=== PATIENT | female | born 1990 | race Caucasian/White ===

== ENCOUNTER → 2016-08-27 | Outpatient (CLI) | payer OTHER | LOC: CDED 14:12 | PROVIDERS: ATTEND Obstetrics & Gynecology | DX: O24.419 Gestational diabetes mellitus in pregnancy, unspecified control (principal) | CPT/HCPCS: 97802 ==

== ENCOUNTER 2016-09-22 05:04 | Inpatient (IN) | payer OTHER ==
[2016-09-22] VITALS (131 sets, daily range): BP systolic 100–140; BP diastolic 38–88; PULSE 63–186; RESP 17–19; TEMP 97.7–99.4; O2SAT 99–100
[~2016-09-22] VITALS: Ht 160 cm; Wt 84.4 kg
[2016-09-22 05:56] LABS: BASOPHIL % 0.2 % (0.0-2.0); EOSINOPHIL # 0.1 TH/MM3 (0-0.4); EOSINOPHIL % 0.6 % (0.0-4.0); HEMATOCRIT 31.8 % (35.0-46.0); HEMO FLAGS DIFF FINAL; LYMPH % 18.5 % (9.0-44.0); LYMPHOCYTE # 1.8 TH/MM3 (1.0-4.8); MEAN CELL VOLUME 74.4 FL (80.0-100.0); MEAN CORPUSCULAR HEMOGLOBIN 23.9 PG (27.0-34.0); MEAN CORPUSCULAR HGB CONC 32.1 % (32.0-36.0); MONO % 7.7 % (0.0-8.0); PLATELET COUNT 237 TH/MM3 (150-450); RED BLOOD COUNT 4.28 MIL/MM3 (4.00-5.30); RED CELL DISTRIBUTION WIDTH 18.6 % (11.6-17.2); WHITE BLOOD COUNT 9.6 TH/MM3 (4.0-11.0)
[2016-09-22] MEDS ORDERED: PREN29TA PO (06:00)
[2016-09-22 06:02] LABS: BACTERIA, URINE OCC /hpf; BLOOD, URINE NEG (NEG); GLUCOSE,URINE NEG (NEG); HYALINE CAST, URINE 2 /lpf (RARE); KETONE, URINE NEG (NEG); MUCUS URINE FEW /lpf (OCC); NITRITE,URINE NEG (NEG); SQUAMOUS EPITHELIAL CELL URINE 3 /hpf (0-5); URINE COLOR YELLOW (YELLW/STRAW)
[2016-09-22 06:03] LABS: COMMENT (UR) CULT NOT INDICATED; CULTURE IF INDICATED CULT NOT INDICATED
[2016-09-22] MEDS ORDERED: OXYTOCIN 30 UNITS-500ML PREMIX 500 ML ONE (06:06)
[2016-09-22] MEDS ORDERED: CITRIC ACID-SODIUM CITRATE LIQ 30 ML UDC PO SCH (06:15)
[2016-09-22] MEDS ORDERED: MINERAL OIL 10 ML VIAL TOPICAL PRN (06:15)
[2016-09-22] MEDS ORDERED: NS 500 ML BOLUS IV PRN (06:15)
[2016-09-22] MEDS ORDERED: LIDOCAINE HCL 1% 50 ML VIAL I-DERMAL PRN (06:15)
[2016-09-22] MEDS ORDERED: OXYTOCIN 30 UNITS/NS 500ML PREMIX IV SCH ×2 (06:15→09:00)
[2016-09-22] MEDS ORDERED: LIDOCAINE HCL 1% 50 ML VIAL INFIL PRN (06:15)
[2016-09-22] MEDS ORDERED: LACTATED RINGER'S 1000 ML BOLUS IV PRN (06:15)
[2016-09-22] MEDS ORDERED: ONDANSETRON HCL 4 MG/2 ML VIAL IV PRN (06:15)
[2016-09-22] MEDS ORDERED: OXYTOCIN 30 UNITS 500ML PREMIX IV ONE (06:15)
[2016-09-22] MEDS ORDERED: NS 1000 ML IV PRN (06:15)
[2016-09-22] MEDS: LACTATED RINGER'S 1000 ML IV SCH ×3 (06:32→22:15)
[2016-09-22] MEDS ORDERED: fentaNYL 2MCG-BUPIV 0.125% INJ 100 ML ONE (14:33)
[2016-09-22] MEDS ORDERED: fentaNYL 2MCG-BUPIV 0.125% 100 ML EPIDURAL SCH (17:30)
[2016-09-22] MEDS ORDERED: ePHEDrine/NS 25 MG/5 ML SYR IV PRN (17:30)
[2016-09-22] MEDS ORDERED: NO SYSTEM NARCOTICS PRN (17:30)
[2016-09-22] MEDS ORDERED: DO NOT ADMINISTER ANTICOAGULANTS PRN (17:30)
[2016-09-22] MEDS ORDERED: BUPIVACAINE HCL PF 0.25% 10 ML VIAL ONE ×2 (19:39→22:36)
[2016-09-23] VITALS (11 sets, daily range): BP systolic 103–126; BP diastolic 55–73; PULSE 16–126; RESP 16–18; TEMP 98.1–98.5; O2SAT 98–100
[2016-09-23] MEDS ORDERED: ACETAMINOPHEN 1000 MG/100 ML VIAL IV ONE (00:02)
[2016-09-23] MEDS ORDERED: OXYTOCIN 10 UNIT/ML AMP ONE (00:02)
[2016-09-23] MEDS ORDERED: LACTATED RINGER'S 1000 ML IV ONE (00:15)
[2016-09-23] MEDS ORDERED: ceFAZolin 2 GM PREMIX 50 ML IV SCH (00:15)
[2016-09-23] MEDS ORDERED: CITRIC ACID-SODIUM CITRATE LIQ 30 ML UDC PO SCH (00:15)
[2016-09-23] MEDS ORDERED: LACTATED RINGER'S 1000 ML IV SCH (00:15)
[2016-09-23] MEDS ORDERED: OXYTOCIN 30 UNITS-500ML PREMIX 500 ML IV ONE (01:00)
[2016-09-23] MEDS ORDERED: KETOROLAC TROMETHAMINE 60 MG/2 ML (IM) VIAL IM PRN ×2 (01:00)
[2016-09-23] MEDS ORDERED: ONDANSETRON HCL 4 MG/2 ML VIAL IV PUSH PRN (01:00)
[2016-09-23] MEDS ORDERED: oxyCODONE/ACETAMINOPHEN 5 MG/325 MG TAB PO PRN (01:00)
[2016-09-23] MEDS ORDERED: SODIUM CHLORIDE 0.9% FLUSH 10 ML FLUSH IV FLUSH PRN (01:00)
--- NOTE | 2016-09-23 01:00 | PD.OB.DELI ---
Procedure Note Section Procedure Pre Op Diagnosis arrest active phase of labor Post Op Diagnosis: Post Op Diagnosis same Performed by Deborah Mckeon Procedure: Primary Low Transverse Sec Indication for delivery: Other Informed consent obtained: For anesthesia, For procedure Confirmed correct: Patient, Procedure, Site, Time-out taken Anesthesia: Epidural Medication prior to procedure: As documented in eMAR Urinary catheter: Inserted using sterile technique Sterile preparation: Duraprep Position: Supine with wedge to left side Operative Features Skin Incision: Pfannenstiel Uterine Incision: Low transverse w/knife / blunt ext Membranes Ruptured: Previously Presentation: Occiput anterior Delivery of infant: Uneventful : Male One Minute : 9 Five Minute : 9 Weight: 7-4 Status of : Viable, Umbilical cord, Nursery present Placenta delivered: Intact Medications: Antibiotics, Oxytocin Estimated blood loss: 800 cc Procedure tolerated: Well Maternal Condition: Stable Condition: Stable Deborah Mckeon MD Sep 23, 2016 01:00
[2016-09-23] MEDS ORDERED: MORPHINE SULFATE PF 10 MG/10 ML VIAL ONE (01:07)
[2016-09-23] MEDS ORDERED: KETOROLAC TROMETHAMINE 60 MG/2 ML (IM) VIAL IM ONE (01:42)
[2016-09-23] MEDS ORDERED: LACTATED RINGER'S 1000 ML INJ 1,000 ML IV SCH (05:53)
--- NOTE | 2016-09-23 09:34 | MP ---
cc: SUMEET RATLIFF M.D. DATE OF SURGERY: 09/23/2016 PREOPERATIVE DIAGNOSIS Intrauterine at 40+ weeks gestation with arrest of active phase of labor at 6 cm. POSTOPERATIVE DIAGNOSIS Intrauterine at 40+ weeks gestation with arrest of active phase of labor at 6 cm. PROCEDURE PERFORMED Primary low transverse section. OPERATING SURGEON Dr. Sumeet Ratliff. ANESTHESIA Epidural. FINDINGS IN SURGERY Included a viable male weighing 7 pounds 4 ounces with Apgars 9 and 9. Normal-appearing tubes and ovaries bilaterally and a very prominent sacrum noted on exam. BLOOD LOSS 800 ccs. COMPLICATIONS None. PROCEDURE IN DETAIL After proper consents were obtained, blood had been typed and screened, the patient was taken to the operating room where an adequate level of epidural anesthesia was achieved. She had already had a Bagley catheter placed. She was sterilely prepped and draped at this time using a sharp knife. A Pfannenstiel skin incision was performed. This was carried down to the fascia using Bovie cautery. Fascia was nicked in the midline and extended superior laterally. There was blunt dissection of the fascia off of the muscles. The peritoneum was identified and grasped with two hemostats and entered sharply using the Metzenbaum scissors. This incision was extended superiorly inferiorly paying close attention to the bladder. Bladder blade was applied, bladder flap was developed, bladder blade was replaced. Transverse incision was made in the lower uterine segment. Finger fracture technique was used to extend it. We then had a controlled delivery of the vertex, bulb suction to the oropharynx and nares, controlled delivery of the body followed. We had delayed cord clamping to 45 seconds, then we clamped the cord, cut in between and was handed to team in attendance, a viable male 7 pounds 4 ounces, Apgars 9 and 9. At this time cord blood sample was obtained. Placenta was removed. The uterus was exteriorized, wiped clean of clots and debris. The uterine incision was closed with a #1 Chromic suture starting at each apex and meeting in the midline in a running interlocking fashion. Excellent hemostasis was noted. Irrigation was performed of the abdominal pelvic cavity. We placed the uterus back into the cavity. We reapproximated the muscles using a #1 Chromic suture x1. We then closed the fascia using a 0 Vicryl starting at each apex and meeting in midline in a running fashion. Irrigation was performed of the subcu. Hemostasis was achieved with the Bovie cautery and the skin was closed with jessica. All sponge, lap, needle count were correct x3 and the patient was stable to the recovery room. MD CHRIS Vences/TLL /8:58 AM /9:16 AM
[2016-09-23] MEDS ORDERED: OXYTOCIN 30 UNITS-500ML PREMIX 500 ML IV PRN (11:00)
[2016-09-23] MEDS: oxyCODONE/ACETAMINOPHEN 5 MG/325 MG TAB PO PRN ×3 (12:53→22:11)
--- NOTE | 2016-09-23 12:54 | HHI.OB ---
Subjective Post Operative Day: 1 Remarks Pt doing well, good pain control, tolerating po Objective Vitals/I&O Vital Signs Date Time Temp Pulse Resp B/P Pulse Ox O2 Delivery O2 Flow Rate FiO2 09/23/16 08:25 98.1 92 16 103/62 09/23/16 04:24 80 16 108/58 09/23/16 04:24 98.5 09/23/16 02:15 108/55 09/23/16 02:15 82 18 99 09/23/16 02:00 90 18 105/59 98 09/23/16 01:45 112/66 09/23/16 01:45 109 18 99 09/23/16 01:30 114 108/55 99 09/23/16 01:30 18 09/23/16 01:15 126 18 126/64 99 09/23/16 01:00 98.4 108 18 120/58 09/23/16 01:00 100 09/22/16 23:35 84 09/22/16 23:31 72 105/52 09/22/16 23:30 71 09/22/16 23:30 18 09/22/16 23:25 84 09/22/16 23:20 83 09/22/16 23:20 85 114/56 09/22/16 23:15 86 09/22/16 23:14 99.4 18 09/22/16 23:12 78 108/56 09/22/16 23:10 74 09/22/16 23:05 90 09/22/16 23:00 76 124/59 09/22/16 23:00 71 09/22/16 22:59 18 09/22/16 22:42 86 131/64 09/22/16 22:41 18 09/22/16 22:40 131 09/22/16 22:30 109 128/74 09/22/16 22:15 18 09/22/16 22:10 98 09/22/16 22:05 93 09/22/16 22:00 94 110/78 09/22/16 22:00 82 09/22/16 21:33 18 09/22/16 21:31 75 18 104/57 09/22/16 21:30 89 09/22/16 21:01 18 09/22/16 21:01 98.6 75 105/43 8/2/17 21:00 87 8/2/17 20:40 18 8/2/17 20:40 68 82/17 20:35 98 82/17 20:31 84 110/74 82/17 20:30 90 82/17 20:10 74 82/17 20:05 79 8217 20:00 73 100/57 82/17 20:00 75 82/17 19:54 18 82/17 19:50 70 82/17 19:48 71 120/64 82/17 19:46 75 118/67 82/17 19:45 78 18 2/17 19:42 71 114/50 82/17 19:40 85 217 19:35 90 217 19:30 83 105/63 82/17 19:30 68 17 19:10 98 217 19:10 98.1 09/22/16 19:10 18 17 19:05 90 17 19:01 77 114/38 82/17 19:00 77 17 18:55 95 09/22/17 18:50 84 2/17 18:45 80 09/22/17 18:40 107 09/22/17 18:35 92 2/17 18:30 92 2/17 18:30 74 136/88 82/17 18:25 79 09/22/17 18:20 72 09/22/17 18:15 18 2/17 18:15 98.2 2/17 18:15 78 82/17 18:10 86 2/17 18:05 88 2/17 18:00 70 82/17 18:00 75 131/79 82/17 17:55 85 2/17 17:50 90 2/17 17:46 69 117/53 82/17 17:45 81 82/17 17:40 66 82/17 17:35 82 82/17 17:30 65 82/17 17:30 78 111/68 82/17 17:25 70 82/17 17:20 82 8/2/17 17:16 67 110/44 82/17 17:15 18 82/17 17:15 81 817 17:10 76 817 17:05 76 817 17:00 68 82/17 17:00 77 121/59 82/17 16:56 72 114/61 82/17 16:45 67 82/17 16:41 72 126/47 82/17 16:40 100 82/17 16:35 70 82/17 16:30 19 82/17 16:30 89 82/17 16:25 68 817 16:20 81 817 16:20 86 127/65 817 16:15 98.2 17 16:15 76 17 16:05 71 17 16:01 76 113/63 17 16:00 96 17 15:55 89 17 15:50 85 2/17 15:45 70 2/17 15:41 75 102/85 82/17 15:40 75 2/17 15:35 71 17 15:30 72 17 15:30 18 17 15:25 93 2/17 15:25 100 2/17 15:20 88 119/80 82/17 15:20 100 2/17 15:20 186 17 15:15 75 100 2/17 15:10 93 100 2/17 15:05 81 100 82/17 15:01 72 111/63 82/17 15:00 77 100 82/17 14:57 84 126/83 82/17 14:56 95 133/76 82/17 14:55 100 100 82/17 14:50 86 99 82/17 14:45 98 100 82/17 14:41 71 108/58 82/17 14:21 76 127/52 82/17 14:00 63 118/75 82/17 13:40 73 114/87 82/17 13:30 98.6 09/22/16 13:21 70 111/65 09/22/16 13:00 87 116/61 09/22/16 12:55 18 Result Diagram: 09/22/16 0539 Objective Remarks GENERAL: Well-nourished, well-developed patient. CARDIOVASCULAR: Regular rate and rhythm without murmurs, gallops, or rubs. RESPIRATORY: Breath sounds equal bilaterally. No accessory muscle use. ABDOMEN/GI: Abdomen soft, non-tender, bowel sounds present. Incision: Clean, dry and intact. Fundus: Firm, non-tender at umbilicus. GENITOURINARY: Light to moderate bleeding. EXTREMITIES: No cyanosis or edema, non-tender, without signs of DVT. Medications and IVs Current Medications Medications (Trade) Dose Ordered Sig/Demetrio Route Start Time Stop Time Status Last Admin Lactated Ringer's 1,000 ml @ 125 mls/hr Q8H IV 09/22/16 06:15 09/22/16 22:15 Lactated Ringer's 1,000 ml @ 3,000 mls/hr BOLUS PRN IV 09/22/16 06:15 09/22/16 11:55 Sodium Chloride 500 ml @ 1,000 mls/hr BOLUS PRN IV 09/22/16 06:15 (NS 1000 ml Inj) 1,000 ml @ 100 mls/hr Q10H PRN IV 09/22/16 06:15 (Zofran Inj) 4 mg Q6H PRN IV 09/22/16 06:15 (fentaNYL INJ) 50 mcg Q1H PRN IV PUSH 09/22/16 06:15 09/22/16 11:55 (fentaNYL INJ) 100 mcg Q1H PRN IV PUSH 09/22/16 06:15 09/22/16 14:41 Mineral Oil 10 ml 10 ml UNSCH PRN TOPICAL 09/22/16 06:15 (Pitocin 30 Units-NS 500 ml Premix) 500 ml @ 0 mls/hr TITRATE IV 09/22/16 09:00 09/22/16 21:36 Miscellaneous Information No systemic narcotics to be given except... UNSCH PRN .XX 09/22/16 17:30 09/23/16 17:29 Miscellaneous Information DO NOT ADMINISTER ANY ANTICOAGUL... UNSCH PRN .XX 09/22/16 17:30 09/23/16 17:29 (fentaNYL 2MCG-BUPIV 0.125% INJ) 100 ml @ 0 mls/hr TITRATE EPIDURAL 09/22/16 17:30 09/22/16 21:33 Ephedrine Sulfate 10 mg 10 mg UNSCH PRN IV 09/22/16 17:30 09/23/16 17:29 Lactated Ringer's 1,000 ml @ 150 mls/hr Q6H40M IV 09/23/16 00:15 (Lr 1000 ml Inj) 1,000 ml @ 100 mls/hr Q10H IV 09/23/16 05:53 09/24/16 01:52 09/23/16 06:28 (NS Flush) 2 ml BID IV FLUSH 09/23/16 09:00 (NS Flush) 2 ml UNSCH PRN IV FLUSH 09/23/16 01:00 (Mylicon Chew) 80 mg QID PRN PO 09/23/16 01:00 (Motrin) 600 mg Q6H PRN PO 09/23/16 01:00 (Toradol Inj) 30 mg Q6H PRN IM 09/23/16 01:00 09/24/16 00:59 (Percocet 5-325 Mg) 1 tab Q4H PRN PO 09/23/16 01:00 (Percocet 5-325 Mg) 2 tab Q4H PRN PO 09/23/16 01:00 (M-M-R Ii Inj) 0.5 ml ONCE ONCE SQ 09/24/16 16:00 09/24/16 16:01 (Boostrix Inj) 0.5 ml ONCE ONCE IM 09/24/16 16:00 09/24/16 16:01 (Zofran Inj) 4 mg Q6H PRN IV PUSH 09/23/16 01:00 Deborah Mckeon MD Sep 23, 2016 12:54
[2016-09-23] MEDS ORDERED: KETOROLAC TROMETHAMINE 30 MG/ML (IVP) VIAL IV PUSH ONE (14:00)
[2016-09-24 00:30] VITALS: BP 96/63; PULSE 108; RESP 18; TEMP 98.6
[2016-09-24] MEDS: SIMETHICONE 80 MG CHEWABLE TAB PO PRN ×2 (00:47→13:22)
[2016-09-24] MEDS: IBUPROFEN 600 MG TAB PO PRN ×4 (00:47→19:11)
[2016-09-24 01:00] VITALS: PULSE 108; RESP 18
[2016-09-24] MEDS: oxyCODONE/ACETAMINOPHEN 5 MG/325 MG TAB PO PRN ×5 (02:00→20:07)
[2016-09-24 08:02] LABS: AUTOMATED NEUTROPHIL # 14.4 TH/MM3 (1.8-7.7); BASOPHIL % 0.2 % (0.0-2.0); EOSINOPHIL # 0.1 TH/MM3 (0-0.4); EOSINOPHIL % 0.5 % (0.0-4.0); HEMO FLAGS DIFF FINAL; LYMPH % 8.9 % (9.0-44.0); LYMPHOCYTE # 1.5 TH/MM3 (1.0-4.8); MEAN CELL VOLUME 75.7 FL (80.0-100.0); MEAN CORPUSCULAR HEMOGLOBIN 23.9 PG (27.0-34.0); MEAN CORPUSCULAR HGB CONC 31.6 % (32.0-36.0); MONO % 5.4 % (0.0-8.0); PLATELET COUNT 200 TH/MM3 (150-450); RED BLOOD COUNT 3.04 MIL/MM3 (4.00-5.30); RED CELL DISTRIBUTION WIDTH 19.1 % (11.6-17.2)
[2016-09-24 08:40] VITALS: BP 110/67; PULSE 98; RESP 18; TEMP 97.6
--- NOTE | 2016-09-24 12:42 | HHI.OB ---
Subjective Post Operative Day: 2 Remarks Pt doing well, tolerating po, passing flatus, good pain control Objective Vitals/I&O Vital Signs Date Time Temp Pulse Resp B/P Pulse Ox O2 Delivery O2 Flow Rate FiO2 09/24/16 08:40 97.6 98 18 110/67 09/24/16 01:00 108 18 09/24/16 00:30 98.6 108 18 09/24/16 00:30 96/63 09/23/16 21:00 116 09/23/16 20:50 16 16 108/70 09/23/16 20:50 98.4 09/23/16 13:00 98.4 126 18 108/73 Result Diagram: 09/24/16 0719 Objective Remarks GENERAL: Well-nourished, well-developed patient. CARDIOVASCULAR: Regular rate and rhythm without murmurs, gallops, or rubs. RESPIRATORY: Breath sounds equal bilaterally. No accessory muscle use. ABDOMEN/GI: Abdomen soft, non-tender, bowel sounds present. Incision: Clean, dry and intact. Fundus: Firm, non-tender at umbilicus. GENITOURINARY: Light to moderate bleeding. EXTREMITIES: No cyanosis or edema, non-tender, without signs of DVT. Medications and IVs Current Medications Medications (Trade) Dose Ordered Sig/Demetrio Route Start Time Stop Time Status Last Admin Lactated Ringer's 1,000 ml @ 125 mls/hr Q8H IV 09/22/16 06:15 09/22/16 22:15 Lactated Ringer's 1,000 ml @ 3,000 mls/hr BOLUS PRN IV 09/22/16 06:15 09/22/16 11:55 Sodium Chloride 500 ml @ 1,000 mls/hr BOLUS PRN IV 09/22/16 06:15 (NS 1000 ml Inj) 1,000 ml @ 100 mls/hr Q10H PRN IV 09/22/16 06:15 (Zofran Inj) 4 mg Q6H PRN IV 09/22/16 06:15 (fentaNYL INJ) 50 mcg Q1H PRN IV PUSH 09/22/16 06:15 09/22/16 11:55 (fentaNYL INJ) 100 mcg Q1H PRN IV PUSH 09/22/16 06:15 09/22/16 14:41 Mineral Oil 10 ml 10 ml UNSCH PRN TOPICAL 09/22/16 06:15 Oxytocin 500 ml @ 0 mls/hr TITRATE IV 09/22/16 09:00 09/22/16 21:36 Fentanyl/ Bupivacaine HCl 100 ml @ 0 mls/hr TITRATE EPIDURAL 09/22/16 17:30 09/22/16 21:33 (Lr 1000 ml Inj) 1,000 ml @ 150 mls/hr Q6H40M IV 09/23/16 00:15 (NS Flush) 2 ml BID IV FLUSH 09/23/16 09:00 (NS Flush) 2 ml UNSCH PRN IV FLUSH 09/23/16 01:00 (Mylicon Chew) 80 mg QID PRN PO 09/23/16 01:00 09/24/16 00:47 (Motrin) 600 mg Q6H PRN PO 09/23/16 01:00 09/24/16 05:59 (Percocet 5-325 Mg) 1 tab Q4H PRN PO 09/23/16 01:00 (Percocet 5-325 Mg) 2 tab Q4H PRN PO 09/23/16 01:00 09/24/16 10:04 (M-M-R Ii Inj) 0.5 ml ONCE ONCE SQ 09/24/16 16:00 09/24/16 16:01 (Boostrix Inj) 0.5 ml ONCE ONCE IM 09/24/16 16:00 09/24/16 16:01 (Zofran Inj) 4 mg Q6H PRN IV PUSH 09/23/16 01:00 Deborah Mckeon MD Sep 24, 2016 12:42
--- NOTE | 2016-09-24 12:42 | HHI.DCPOC ---
Discharge Care Plan Your Health Problems Are: delivery Report Symptoms to Your Doctor -Temperature above 100.5 degrees -Redness, of incision or excessive or foul smelling drainage -Unusual pain or calf pain -Increased vaginal bleeding -Painful or difficulty urinating -Feelings of extreme sadness or anxiety after 2 weeks Goals to Promote Your Health * To prevent worsening of your condition and complications * To maintain your health at the optimal level Directions to Meet Your Goals Take your medications as prescribed Follow your dietary instruction Follow activity as directed Ensure plenty of rest for recovery Drink fluids for hydration Keep your appointments as scheduled Take your immunizations and boosters as scheduled If your symptoms worsen call your PCP, if no PCP go to Urgent Care Center or Emergency Room Smoking is Dangerous to Your Health. Avoid second hand smoke Call the 24-hour crisis hotline for domestic abuse at Deborah Mckeon MD Sep 24, 2016 12:42
--- NOTE | 2016-09-24 12:45 | HHI.DS ---
Admission Date Sep 22, 2016 at 05:04 Discharge Date: Sep 25, 2016 Admitting Diagnosis IUP at 40+ wks for induction Diagnosis: : Primary Reason: arrest active phase of labor : Male Pt Condition on Discharge: Good Discharge Disposition: Discharge Home Discharge Instructions Diet Instructions: As Tolerated, No Restrictions Activities You Can Perform: Pelvic Rest Activities to Avoid: Strenuous Activity, Sexual Activity Deborah Mckeon MD Sep 24, 2016 12:44
[2016-09-24] MEDS ORDERED: OXYC1TAB63 PO (12:48)
[2016-09-24 15:55] VITALS: RESP 18
[2016-09-24] MEDS: DOCUSATE SODIUM 50 MG/SENNA 8.6 MG TAB PO PRN (15:57)
[2016-09-24] MEDS ORDERED: DIPHTH/TETANUS/ACEL PERTUSSIS (BOOSTER) 0.5 ML VIAL/PFS IM ONE (16:00)
[2016-09-24] MEDS ORDERED: MEASLES, MUMPS, RUBELLA VACCINE 0.5 ML VIAL SQ ONE (16:00)
[2016-09-24] MEDS: SODIUM CHLORIDE 0.9% FLUSH 10 ML FLUSH IV FLUSH SCH (21:00)
[2016-09-24 23:00] VITALS: BP 138/82; PULSE 92; RESP 18; TEMP 97.7
[2016-09-25] MEDS: IBUPROFEN 600 MG TAB PO PRN ×4 (01:18→21:04)
[2016-09-25] MEDS: oxyCODONE/ACETAMINOPHEN 5 MG/325 MG TAB PO PRN ×4 (01:18→21:05)
[2016-09-25 08:00] VITALS: BP 118/69; PULSE 93; RESP 18; TEMP 97.9
[2016-09-25] MEDS: DOCUSATE SODIUM 50 MG/SENNA 8.6 MG TAB PO PRN ×2 (08:37→21:03)
[2016-09-25] MEDS: SIMETHICONE 80 MG CHEWABLE TAB PO PRN ×2 (08:37→20:24)
--- NOTE | 2016-09-25 08:54 | HHI.OB ---
Subjective Post Day: 2 Remarks doing well, jessica are falling out Objective Vitals/I&O Vital Signs Date Time Temp Pulse Resp B/P Pulse Ox O2 Delivery O2 Flow Rate FiO2 09/24/16 23:00 97.7 92 18 138/82 09/24/16 15:55 18 Objective Remarks GENERAL: Well-nourished, well-developed patient. ABDOMEN/GI: Abdomen soft, non-tender. Fundus: Firm, non-tender at umbilicus. incision with jessica out steristrip placed GENITOURINARY: Light to moderate bleeding. EXTREMITIES: No cyanosis or edema, non-tender, without signs of DVT. Medications and IVs Current Medications Medications (Trade) Dose Ordered Sig/Demetrio Route Start Time Stop Time Status Last Admin Lactated Ringer's 1,000 ml @ 125 mls/hr Q8H IV 09/22/16 06:15 09/22/16 22:15 Lactated Ringer's 1,000 ml @ 3,000 mls/hr BOLUS PRN IV 09/22/16 06:15 09/22/16 11:55 Sodium Chloride 500 ml @ 1,000 mls/hr BOLUS PRN IV 09/22/16 06:15 (NS 1000 ml Inj) 1,000 ml @ 100 mls/hr Q10H PRN IV 09/22/16 06:15 (Zofran Inj) 4 mg Q6H PRN IV 09/22/16 06:15 (fentaNYL INJ) 50 mcg Q1H PRN IV PUSH 09/22/16 06:15 09/22/16 11:55 (fentaNYL INJ) 100 mcg Q1H PRN IV PUSH 09/22/16 06:15 09/22/16 14:41 Mineral Oil 10 ml 10 ml UNSCH PRN TOPICAL 09/22/16 06:15 Oxytocin 500 ml @ 0 mls/hr TITRATE IV 09/22/16 09:00 09/22/16 21:36 Fentanyl/ Bupivacaine HCl 100 ml @ 0 mls/hr TITRATE EPIDURAL 09/22/16 17:30 09/22/16 21:33 (Lr 1000 ml Inj) 1,000 ml @ 150 mls/hr Q6H40M IV 09/23/16 00:15 (NS Flush) 2 ml BID IV FLUSH 09/23/16 09:00 (NS Flush) 2 ml UNSCH PRN IV FLUSH 09/23/16 01:00 (Mylicon Chew) 80 mg QID PRN PO 09/23/16 01:00 09/25/16 08:37 (Motrin) 600 mg Q6H PRN PO 09/23/16 01:00 09/25/16 08:39 (Percocet 5-325 Mg) 1 tab Q4H PRN PO 09/23/16 01:00 (Percocet 5-325 Mg) 2 tab Q4H PRN PO 09/23/16 01:00 09/25/16 06:02 (Zofran Inj) 4 mg Q6H PRN IV PUSH 09/23/16 01:00 (Jenny-Colace) 2 tab Q12H PRN PO 09/24/16 14:00 09/25/16 08:37 Assessment/Plan Problem List: (1) delivery delivered Discharge Planning dc in AM Monroe Rodriguez MD Sep 25, 2016 08:54
[2016-09-25] MEDS: SODIUM CHLORIDE 0.9% FLUSH 10 ML FLUSH IV FLUSH SCH (09:00)
[2016-09-25 21:00] VITALS: BP 111/69; PULSE 97; RESP 24; TEMP 97.8
[2016-09-26] MEDS: oxyCODONE/ACETAMINOPHEN 5 MG/325 MG TAB PO PRN ×2 (01:39→05:58)
[2016-09-26] MEDS: IBUPROFEN 600 MG TAB PO PRN (05:57)
[2016-09-26] MEDS: SODIUM CHLORIDE 0.9% FLUSH 10 ML FLUSH IV FLUSH SCH (09:00)
[2016-09-26 09:15] VITALS: BP 108/67; PULSE 74; RESP 18; TEMP 97.9
--- NOTE | 2016-09-26 11:33 | HHI.OB ---
Subjective Post Day: 3 Remarks doing well Objective Vitals/I&O Vital Signs Date Time Temp Pulse Resp B/P Pulse Ox O2 Delivery O2 Flow Rate FiO2 09/26/16 09:15 97.9 74 18 108/67 09/25/16 21:00 97.8 97 24 111/69 Objective Remarks GENERAL: Well-nourished, well-developed patient. ABDOMEN/GI: Abdomen soft, non-tender. Fundus: Firm, non-tender at umbilicus. incision with jessica out steristrip placed GENITOURINARY: Light to moderate bleeding. EXTREMITIES: No cyanosis or edema, non-tender, without signs of DVT. Medications and IVs Current Medications Medications (Trade) Dose Ordered Sig/Demetrio Route Start Time Stop Time Status Last Admin Lactated Ringer's 1,000 ml @ 125 mls/hr Q8H IV 09/22/16 06:15 09/22/16 22:15 Lactated Ringer's 1,000 ml @ 3,000 mls/hr BOLUS PRN IV 09/22/16 06:15 09/22/16 11:55 Sodium Chloride 500 ml @ 1,000 mls/hr BOLUS PRN IV 09/22/16 06:15 (NS 1000 ml Inj) 1,000 ml @ 100 mls/hr Q10H PRN IV 09/22/16 06:15 (Zofran Inj) 4 mg Q6H PRN IV 09/22/16 06:15 (fentaNYL INJ) 50 mcg Q1H PRN IV PUSH 09/22/16 06:15 09/22/16 11:55 (fentaNYL INJ) 100 mcg Q1H PRN IV PUSH 09/22/16 06:15 09/22/16 14:41 Mineral Oil 10 ml 10 ml UNSCH PRN TOPICAL 09/22/16 06:15 Oxytocin 500 ml @ 0 mls/hr TITRATE IV 09/22/16 09:00 09/22/16 21:36 Fentanyl/ Bupivacaine HCl 100 ml @ 0 mls/hr TITRATE EPIDURAL 09/22/16 17:30 09/22/16 21:33 (Lr 1000 ml Inj) 1,000 ml @ 150 mls/hr Q6H40M IV 09/23/16 00:15 (NS Flush) 2 ml BID IV FLUSH 09/23/16 09:00 (NS Flush) 2 ml UNSCH PRN IV FLUSH 09/23/16 01:00 (Mylicon Chew) 80 mg QID PRN PO 09/23/16 01:00 09/25/16 20:24 (Motrin) 600 mg Q6H PRN PO 09/23/16 01:00 09/26/16 05:57 (Percocet 5-325 Mg) 1 tab Q4H PRN PO 09/23/16 01:00 09/25/16 13:13 (Percocet 5-325 Mg) 2 tab Q4H PRN PO 09/23/16 01:00 09/26/16 05:58 (Zofran Inj) 4 mg Q6H PRN IV PUSH 09/23/16 01:00 (Jenny-Colace) 2 tab Q12H PRN PO 09/24/16 14:00 09/25/16 21:03 Assessment/Plan Problem List: (1) delivery delivered Discharge Planning dc in AM Monroe Rodriguez MD Sep 26, 2016 11:33
--- NOTE | 2016-09-26 11:35 | HHI.DS ---
Admission Date Sep 22, 2016 at 05:04 Admitting Diagnosis IUP at 40+ wks for induction Diagnosis: : Primary : Male Brief History admitted by [facility] Course CS for arrest of dilatation Pt Condition on Discharge: Good Discharge Disposition: Discharge Home Discharge Instructions Diet Instructions: As Tolerated, No Restrictions Activities You Can Perform: Pelvic Rest Activities to Avoid: Driving for 24 hrs, Strenuous Activity, Sexual Activity Follow up Referrals: [facility] - 2 Weeks @ [facility] with Deborah Mckeon MD New Medications: Oxycodone-Acetaminophen (Oxycodone-Acetaminophen) 5-325 mg Tab 1 TAB PO Q4H PRN PAIN SCALE 3 TO 5 #30 TAB Continued Medications: Vit-Iron Carbonyl ( Plus Iron 29-1 mg) 1 Tab Tab 1 TAB PO DAILY Nutritional Supplement #30 Ref 0 TAB Monroe Rodriguez MD Sep 26, 2016 11:35
== END 2016-09-26 12:50 | disposition home or self-care (01) | DRG 766 ==
LOC: H2EA 05:04 → H1EA 09-23 02:45
PROVIDERS: ADMIT Obstetrics & Gynecology; ATTEND Obstetrics & Gynecology
PROC: 10D00Z1 Extraction of Products of Conception, Low, Open Approach (ICD-10-PCS; principal; 2016-09-23)
DX: O48.0 Post-term pregnancy (principal); O62.1 Secondary uterine inertia; Z37.0 Single live birth; Z3A.40 40 weeks gestation of pregnancy
CPT/HCPCS: 59025; 81001; 85025; 86703; 86900; 86901; 90715; J0131; J0690; J1885; J2274; J2590; J3010; J7120